=== PATIENT | male | born 1940 | race Caucasian/White ===

== ENCOUNTER 2016-11-03 18:01 | Emergency (ER) | payer MEDICARE, BC ==
[2016-11-03 18:25] VITALS: BP 168/98
--- NOTE | 2016-11-03 20:22 | EDM.PDOC ---
ED HPI GENERAL MEDICAL PROBLEM - General Chief Complaint: Lower Extremity Injury/Pain Stated Complaint: illness Time Seen by Provider: 11/03/16 18:05 Source of Information: Reports: Patient, Family History Limitations: Reports: No Limitations - History of Present Illness INITIAL COMMENTS - FREE TEXT/NARRATIVE: This gentleman has Parkinson's disease as well as rheumatoid arthritis. It has gotten to the point where he is no longer able to walk again. Most of the problem seems to be that it just hurts everywhere. He complains that all of his joints hurt his legs hurt mostly the distal thighs. 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 He said he takes medications for rheumatoid arthritis as well as Parkinson's disease. The list supplied doesn't appear to be a complete list however. His wonders if he might have pneumonia. She wonders if he might be dehydrated. He is able to eat and drink okay however. She said his face looks really gaunt and sunken and as if he is dehydrated or malnourished. There is no history of any fever although they don't have a thermometer. There is no nausea or vomiting. He has frequent constipation and so he takes neuroleptics every day and she has to give him suppositories several times a week I believe it's Dulcolax. He said he doesn't like taking pain medications for the arthritis. He does have a ventral hernia but that doesn't seem to be bothering him too much. His is aware that if anything seems to get stuck in the hernia they can push it back in. Since there is a large abdominal wall defect. He's wearing a an abdominal binder - Related Data Allergies Allergy/AdvReac Type Severity Reaction Status Date / Time tramadol Allergy Hypertensio Verified 04/13/16 08:55 n morphine AdvReac Vomiting Verified 04/11/16 15:30 Home Meds: Home Meds Naproxen Sodium [Aleve] 220 mg PO DAILY 07/10/13 [History] Acetaminophen [Tylenol] 325 mg PO Q6H PRN 10/15/15 [History] Docusate Sodium [Colace] 100 mg PO BID PRN 10/15/15 [History] Cephalexin [Take Home: Cephalexin 500 MG, 4 Cap Pack] 1 tab PO DAILY 11/03/16 [ History] Ketoconazole [Ketoconazole] 11/03/16 [History] Past Medical History HEENT History: Reports: Other (See Below) Other HEENT History: dry eyes Cardiovascular History: Reports: Heart Murmur Gastrointestinal History: Reports: Bowel Obstruction, Chronic Constipation, Other (See Below) Other Gastrointestinal History: hernia Genitourinary History: Reports: Prostate Disorder, Other (See Below) Other Genitourinary History: prostatectomy 2006 Musculoskeletal History: Reports: RA Neurological History: Reports: Head Trauma, Parkinson's Hematologic History: Reports: Anemia, Blood Transfusion(s) Oncologic (Cancer) History: 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, Prostate, Other (See Below) Other Oncologic History: skin Dermatologic History: Reports: Melanoma - Infectious Disease History Infectious Disease History: Reports: Chicken Pox - Past Surgical History GI Surgical History: Reports: Other (See Below) Musculoskeletal Surgical History: Reports: Hip Replacement, Knee Replacement, Shoulder Replacement, Other (See Below) Social & Family History - Tobacco Use Smoking Status *Q: Never Smoker Second Hand Smoke Exposure: No - Caffeine Use Caffeine Use: Reports: Coffee - Alcohol Use Days Per Week of Alcohol Use: 0 - Recreational Drug Use Recreational Drug Use: No - Living Situation & Occupation Living situation: Reports: Occupation: Disabled Review of Systems - Review of Systems Review Of Systems: See Below (The study is) Constitutional: Reports: No Symptoms Eyes: Reports: No Symptoms Ears: Reports: No Symptoms Nose: Reports: No Symptoms Mouth/Throat: Reports: No Symptoms Respiratory: Reports: No Symptoms Cardiovascular: Reports: No Symptoms GI/Abdominal: Reports: Other (Has a ventral hernia and chronic constipation) Genitourinary: Reports: No Symptoms Musculoskeletal: Reports: Other (All joints seem to be hurting but especially the lower part of the thighs he does have prosthetic knees.) Skin: Reports: No Symptoms, Other (His thinks his face is really sunken in and thinks it might be from dehydration) Neurological: Reports: No Symptoms Psychiatric: Reports: No Symptoms ED EXAM, GENERAL - Physical Exam Exam: See Below Exam Limited By: No Limitations General Appearance: Alert, No Apparent Distress, Thin (Seems to be malnourished but not obviously dehydrated.) Eye Exam: Bilateral Eye: Normal Inspection (Appears to have intraocular lens in the left eye.) Throat/Mouth: Normal Inspection (Mucous membranes are moist.) Head: Atraumatic Neck: Supple Respiratory/Chest: Lungs Clear Cardiovascular: Regular Rate, Rhythm, No Murmur GI/Abdominal: Normal Bowel Sounds, Soft, Non-Tender, Other (There is a large ventral hernia and abdominal contents are palpable in it but readily reducible.) Back Exam: Other (There is a pressure ulcer at about the L5-S1 area. This appears to be superficial.) Extremities: Normal Inspection, Other (There is a lot of D formation of the joints of the hand consistent with advanced rheumatoid arthritis) Neurological: Alert, Oriented, No Motor/Sensory Deficits, Other (He has a coarse tremor consistent with Parkinson's disease.) Psychiatric: Normal Affect, Normal Mood Skin Exam: Warm, Dry, Intact (Skin turgor seems okay) Lymphatic: No Adenopathy Course - Vital Signs Last Recorded V/S: Last Vital Signs Temp 37.1 C 11/03/16 18:24 Pulse 58 L 11/03/16 18:24 Resp 14 11/03/16 18:24 BP 168/98 H 11/03/16 18:24 Pulse Ox 97 11/03/16 18:24 - Orders/Labs/Meds Orders: Active Orders 24 hr Category Date Time Status Chest 1V Frontal [CR] Urgent Exams 11/03/16 19:14 Taken Labs: Laboratory Tests 11/03/16 11/03/16 11/03/16 Range/Units 19:20 19:20 19:58 WBC 6.1 (4.5-11.0) K/uL RBC 4.00 L (4.30-5.90) M/uL Hgb 10.6 L (12.0-15.0) g/dL Hct 33.1 L (40.0-54.0) % MCV 83 (80-98) fL MCH 27 (27-31) pg MCHC 32 (32-36) % Plt Count 228 (150-400) K/uL Neut % (Auto) 65 (36-66) % Lymph % (Auto) 22 L (24-44) % Glenn % (Auto) 11 H (2-6) % Eos % (Auto) 1 L (2-4) % Baso % (Auto) 1 (0-1) % Sodium 138 L (140-148) mmol/L Potassium 4.5 (3.6-5.2) mmol/L Chloride 103 (100-108) mmol/L Carbon Dioxide 26 (21-32) mmol/L Anion Gap 13.5 (5.0-14.0) mmol/L BUN 19 H (7-18) mg/dL Creatinine 1.1 (0.8-1.3) mg/dL Est Cr Clr Drug Dosing 51.79 mL/min Estimated GFR (MDRD) > 60 (>60) Glucose 94 (74-106) mg/dL Calcium 8.3 L (8.5-10.1) mg/dL Total Bilirubin 0.5 (0.2-1.0) mg/dL AST 16 (15-37) U/L ALT 11 L (12-78) U/L Alkaline Phosphatase 104 (46-116) U/L Total Protein 8.1 (6.4-8.2) g/dL Albumin 3.0 L (3.4-5.0) g/dL Globulin 5.1 H (2.3-3.5) g/dL Albumin/Globulin Ratio 0.6 L (1.2-2.2) Urine Color Yellow Urine Appearance Clear Urine pH 5.0 (4.5-8.0) Ur Specific Geff 1.020 (1.008-1.030) Urine Protein Negative (NEGATIVE) mg/dL Urine Glucose (UA) Normal (NEGATIVE) mg/dL Urine Ketones Negative (NEGATIVE) mg/dL Urine Occult Blood Negative (NEGATIVE) Urine Nitrite Negative (NEGAITVE) Urine Bilirubin Negative (NEGATIVE) Urine Urobilinogen Normal (NORMAL) mg/dL Ur Leukocyte Esterase Negative (NEGATIVE) Urine RBC 0-5 (0-5) Urine WBC 0-5 (0-5) Ur Epithelial Cells Few Amorphous Sediment Not seen Urine Bacteria Moderate Urine Mucus Not seen - Radiology Interpretation Free Text/Narrative:: Slightly increased heart size lung markings normal. No evidence of any pneumonia bony and soft tissues normal. - Re-Assessments/Exams Free Text/Narrative Re-Assessment/Exam: 11/03/16 20:32 Impression is that he would do well with better pain control low-dose narcotics such as hydrocodone might be helpful. He needs reevaluation of his rheumatoid arthritis medications. Physical therapy would also help. A reevaluation of his Parkinson's meds would also help. We'll try to get him into clinic tomorrow possibly to set up home physical therapy. He will get a prescription for #[address]. 05/325 tablets. Departure - Departure Time of Disposition: 20:17 Disposition: Home, Self-Care 01 Clinical Impression: Rheumatoid arthritis flare, Parkinson's disease (tremor, stiffness, slow motion , unstable posture) - Discharge Information Referrals: Jude Toribio MD [Primary Care Provider] - Forms: ED Department Discharge Additional Instructions: Continue your usual medications. For pain take the hydrocodone/acetaminophen 5/ 325 (#20 tablets) one or 2 every 4 hours as needed. This medication can cause sedation. Start with the lowest dose, one tablet every 4-6 hours. If that is not effective then increase to 2 tablets. If this seems to cause sedation then you can cut back on the dose. You're being referred back to the clinic and someone should contact you tomorrow morning for a follow-up appointment. It's hoped that maybe your rheumatoid arthritis and Parkinson's medications can be adjusted. Also it might be helpful to get home physical therapy set up. Your DrChyna can also help with the pressure ulcer to the low back. - My Orders Last 24 Hours: My Active Orders 11/03/16 19:14 Chest 1V Frontal [CR] Urgent - Assessment/Plan Last 24 Hours: My Active Orders 11/03/16 19:14 Chest 1V Frontal [CR] Urgent
--- NOTE | 2016-11-04 08:36 | CR ---
Mild cardiomegaly. No focal consolidation. Pulmonary vasculature within normal limits.
== END 2016-11-03 20:37 | disposition home or self-care (01) ==
LOC: JP.ED 18:01
DX: M06.9 Rheumatoid arthritis, unspecified (principal); G20 Parkinson's disease; Z96.659 Presence of unspecified artificial knee joint; Z96.649 Presence of unspecified artificial hip joint; Z79.899 Other long term (current) drug therapy; Z88.5 Allergy status to narcotic agent
CPT/HCPCS: 36415; 71010; 71010-26; 80053; 81001; 85025; 99283; 99284